=== PATIENT | male | born 1955 | race Caucasian/White ===

== ENCOUNTER 2016-12-11 11:38 | Day surgery (SDC) | payer OTHER ==
[~2016-12-11] VITALS: Ht 157.5 cm; Wt 88.7 kg
[2016-12-11] VITALS (13 sets, daily range): BP systolic 102–123; BP diastolic 64–80; PULSE 55–68; RESP 14–29; Ht 157.5 cm; Wt 88.7 kg
[2016-12-11] MEDS ORDERED: BUPIVACAINE 0.5% (SDV) 30 ML INJ ONE (12:37)
[2016-12-11] MEDS ORDERED: POVIDONE IODINE 10% 28.4 GM OINT ONE (12:38)
[2016-12-11] MEDS ORDERED: DEXAMETHASONE 4 MG/ML 1 ML INJ ONE ×2 (12:38→13:43)
[2016-12-11] MEDS ORDERED: ATEN50TA PO (12:52)
[2016-12-11] MEDS ORDERED: LORA0.5T PO (12:52)
[2016-12-11] MEDS ORDERED: LIDOCAINE 1% (STERILE-PAK) 30 ML INJ ONE (13:03)
--- NOTE | 2016-12-11 13:10 | HPN ---
Date/Time of Note Date/Time of Note DATE: 12/11/16 TIME: 13:10 Interval H&P Admission Note Pt. seen H&P reviewed: No system changes TIMOTHY PATEL DPM Dec 11, 2016 13:10
[2016-12-11] MEDS ORDERED: SEVOFLURANE 15 MIN ONE (13:30)
[2016-12-11] MEDS ORDERED: PROPOFOL 20 ML ONE (13:32)
[2016-12-11] MEDS ORDERED: MIDAZOLAM 1 MG/ML 2 ML INJ ONE (13:32)
[2016-12-11] MEDS ORDERED: LIDOCAINE 2% (SDV) 5 ML INJ ONE (13:32)
[2016-12-11] MEDS ORDERED: ONDANSETRON 4 MG INJ ONE (13:43)
[2016-12-11] MEDS ORDERED: FAMOTIDINE 20 MG INJ ONE (13:43)
--- NOTE | 2016-12-11 14:29 | OPR ---
Date/Time of Note Date/Time of Note DATE: 12/11/16 TIME: 14:20 Operative Report Preoperative Diagnosis taylors bunion, left foot Postoperative Diagnosis taylors bunion, left foot Operation/Procedure Performed partical ostectomy fifth mp joint left Surgeon: TIMOTHY PATEL DPM Anesthesia: general Estimated Blood Loss: minimal Specimens bone Complications: None TIMOTHY PATEL DPM Dec 11, 2016 14:29
[2016-12-11] MEDS ORDERED: DIPHENHYDRAMINE 50 MG INJ IV PRN (14:30)
[2016-12-11] MEDS ORDERED: FENTAnyl 50 MCG/ML VIAL IV PRN (14:30)
[2016-12-11] MEDS ORDERED: HYDROmorphONE (0.2 MG/ML) 10ML SYG IV PRN ×2 (14:30)
[2016-12-11] MEDS ORDERED: METOCLOPRAMIDE 10 MG INJ IV PRN (14:30)
[2016-12-11] MEDS ORDERED: MEPERIDINE 25 MG INJ IV PRN (14:30)
[2016-12-11] MEDS ORDERED: ONDANSETRON 4 MG INJ IV PRN (14:30)
--- NOTE | 2016-12-11 16:25 | OPR ---
DATE OF OPERATION: 12/11/2016 PREOPERATIVE DIAGNOSIS: Tailor's bunion, left foot. POSTOPERATIVE DIAGNOSIS: Tailor's bunion, left foot. OPERATION PERFORMED: Partial ostectomy of the fifth metatarsophalangeal joint, left foot. SURGEON: Tay Quinteros DPM OPERATIVE PROCEDURE: Patient was brought to the surgical suite, placed in the supine position. Patient was under general anesthesia. The patient had a tourniquet at the height of the ankle. Patient had sterile prep and drape, and findings consistent with the pre and postop diagnosis. First incision was a dorsal longitudinal incision over the fifth metatarsophalangeal joint. Using sharp and blunt dissection, the incision was carried deep. The head of the 5th metatarsal and the base of the proximal phalanx were freed of their attachments and the areas were resected. The area was rasped smooth as well as the plantar aspect of the proximal phalanx and head of the fifth metatarsal. The area was then flushed with copious amounts of sterile saline and the area was then coaptated subcutaneously using 3-0 Vicryl. The skin was coaptated using 5-0 nylon. The area was then injected with 0.5 percent Marcaine to prolong anesthesia and a dressing of half-inch Steri-Strips, Betadine ointment, 4x4s impregnated with Betadine solution, and Oleg with an outer layer of Coban made into a semicompressive dressing. The patient tolerated surgery well and was returned to recovery room in satisfactory condition. There was minimal blood loss and no complications. Dictated By: Tay Quinteros DPM /jose/obi /Document#: [id number]
--- NOTE | 2016-12-12 01:10 | PREOPHP ---
DATE OF ADMISSION: 12/11/2016 REASON FOR ADMISSION: Elective foot surgery. Palliative treatment, unsuccessful. HISTORY OF PRESENT ILLNESS: The patient has been explained the surgery, complications, alternatives, and elected to have elective foot surgery. The patient is having pain on the tailor's bunion area, left foot. ALLERGIES: PENICILLIN. MEDICATIONS: Taking Atenolol. REVIEW OF SYSTEMS: Negative heart, lung, liver, kidneys, thyroid. Diabetes negative. SOCIAL HISTORY: Negative for smoking and alcohol. See any other pertinent history and upper extremity physical exam by [facility]. PHYSICAL EXAMINATION: LOWER EXTREMITIES: Shows DP, PT were regular. MUSCULOSKELETAL: Shows a tailor's bunion, left foot. DERMATOLOGIC: Shows lesions on the 5th MP joint, left foot. NEUROLOGIC: Negative for pathology. FINAL DIAGNOSIS: Tailor's bunion, left foot. Dictated By: Tay Quinteros DPM /jose/ambar /Document#: [id number]
== END 2016-12-11 16:45 | disposition home or self-care (01) ==
LOC: SDS 11:38
PROVIDERS: ATTEND Podiatrist
DX: M21.622 Bunionette of left foot (principal); I10 Essential (primary) hypertension; Z88.0 Allergy status to penicillin
CPT/HCPCS: 28110; 88304; 88311; J1100; J2175; J2250; J2405; Z7512; Z7610

== ENCOUNTER 2018-12-23 06:07 | Day surgery (SDC) | payer OTHER ==
[~2018-12-23] VITALS: Ht 203.2 cm; Wt 89.4 kg
[~2018-12-23 06:07] MED LIST: ATEN50TA PO; LORA0.5T PO
[2018-12-23 07:04] VITALS: Ht 203.2 cm; Wt 89.4 kg
[2018-12-23 07:16] VITALS: BP 124/73; PULSE 52; RESP 14
--- NOTE | 2018-12-23 08:04 | PREAC ---
Date/Time of Note Date/Time of Note DATE: 12/23/18 TIME: 08:03 Anesthesia Eval and Record Evaluation Time Pre-Procedure Interview DATE: 12/23/18 TIME: 08:03 Age 63 Sex male NPO: 8 hrs Preoperative diagnosis LLQ Pain, CBH, Screening Planned procedure Colonoscopy Past Medical History Past Medical History: Includes Cardio: HTN, Dyslipidemia Surgery & Anesthesia Issues No known issue Meds Anticoagulation: No Beta Murphy within 24 hr: Yes Reported Medications Lorazepam* (Lorazepam*) 0.5 Mg Tablet, 0.5 MG PO HS, TAB 12/11/16 Atenolol* (Atenolol*) 50 Mg Tablet, 50 MG PO DAILY, #30 TAB 12/11/16 Meds reviewed: Yes Allergies Coded Allergies: Penicillins (Verified Allergy, Severe, RASH/FEVER, 12/23/18) Allergies Reviewed: Yes Labs/Studies Labs Reviewed: Reviewed by anesthesiologist test: N/A Studies: ECG (n/a), CXR (n/a) Pre-procedure Exam Last vitals Vital Signs Date Temp Pulse Resp B/P (MAP) Pulse Ox O2 O2 Flow FiO2 Time Delivery Rate 12/23/18 97.9 52 14 124/73 97 Room Air 07:16 (90) Airway: Adequate mouth opening, Adequate thyromental dist Mallampati: Mallampati II Teeth: Normal Lung: Normal Heart: Normal ASA Physical Status ASA physical status: 2 Emergency: None Planned Anesthetic General/MAC: MAC Planned Pain Management Parenteral pain med Pre-operative Attestations Prior to commencing anesthesia and surgery, the patient was re-evaluated, there was verification of: *The patient's identity *The results of appropriate recent lab work and preoperative vital signs *The above evaluation not changing prior to induction *Anesthetic plan, risk benefits, alternative and complications discussed with patient/family; questions answered; patient/family understands, accepts and wishes to proceed. YVONNE SARAVIA MD Dec 23, 2018 08:04
--- NOTE | 2018-12-23 08:40 | PAC ---
Date/Time of Note Date/Time of Note DATE: 12/23/18 TIME: 08:39 Post-Anesthesia Notes Post-Anesthesia Note Last documented vital signs Vital Signs Date Temp Pulse Resp B/P (MAP) Pulse Ox O2 O2 Flow FiO2 Time Delivery Rate 12/23/18 97.9 52 14 124/73 97 Room Air 07:16 (90) Activity: WNL Respiratory function: WNL Cardiovascular function: WNL Mental status: Baseline Pain reasonably controlled: Yes Hydration appropriate: Yes Nausea/Vomiting absent: Yes YVONNE SARAVIA MD Dec 23, 2018 08:40
[2018-12-23] MEDS ORDERED: PROPOFOL 40 ML ONE (08:51)
[2018-12-23 09:00] VITALS: BP 153/88; RESP 15
== END 2018-12-23 15:08 | disposition home or self-care (01) ==
LOC: GIL 06:07
PROVIDERS: ATTEND Internal Medicine Gastroenterology
DX: Z12.11 Encounter for screening for malignant neoplasm of colon (principal); D12.6 Benign neoplasm of colon, unspecified; K64.8 Other hemorrhoids; I10 Essential (primary) hypertension
CPT/HCPCS: 45380; 88305; Z7610